=== PATIENT | male | born 1955 | race Native Hawaiian/Other Pacific Islander ===

== ENCOUNTER 2020-09-18 09:22 | Outpatient (CLI) | payer OTHER ==
[~2020-09-18 09:22] MED LIST: ASA LOW STR81 MG PO; DICL75TA4 PO; HYDACET7.5 PO; PRAV40TA PO; ZOLP10TA2 PO
== END 2020-09-18 21:10 | disposition home or self-care (01) ==
LOC: MRI 09:22
PROVIDERS: ATTEND Internal Medicine
DX: M54.16 Radiculopathy, lumbar region (principal)

== ENCOUNTER 2020-12-16 06:34 | Outpatient (CLI) | payer OTHER ==
[2020-12-16 07:35] LABS: POTASSIUM 4.6 mmol/L (3.6-5.2)
[2020-12-16 07:50] LABS: PLATELET COUNT 390 K/uL (142-355)
== END 2020-12-16 19:30 | disposition home or self-care (01) ==
LOC: LABW 06:34
PROVIDERS: ATTEND Internal Medicine
DX: K92.1 Melena (principal)
CPT/HCPCS: 36415; 80053; 81000; 82150; 83690; 85027

== ENCOUNTER 2021-05-21 14:46 | Outpatient (CLI) | payer OTHER | END 2021-05-21 19:01 | disposition home or self-care (01) | LOC: MRI 14:46 | PROVIDERS: ATTEND Neurological Surgery | DX: G89.4 Chronic pain syndrome (principal) ==

== ENCOUNTER 2022-02-04 16:01 | Outpatient (CLI) | payer OTHER | END 2022-02-04 19:04 | disposition home or self-care (01) | LOC: CT 16:01 | PROVIDERS: ATTEND Pain Medicine Interventional Pain Medicine | DX: M54.17 Radiculopathy, lumbosacral region (principal) ==